=== PATIENT | female | born 2000 | race Caucasian/White ===

== ENCOUNTER 2022-01-27 21:57 | Observation (INO) ==
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
[2022-01-27 22:50] LABS: BASOPHILS # (AUTO) 0.1 X10^3/uL (0.0-0.1); BASOPHILS % (AUTO) 1.7 % (0.2-1.0); EOSINOPHILS # (AUTO) 0.1 x10^3/uL (0.0-0.2); EOSINOPHILS % (AUTO) 1.2 % (0.9-2.9); HEMATOCRIT 34.7 % (36.0-47.0); HEMOGLOBIN 11.2 g/dL (12.0-16.0); LYMPHOCYTES # (AUTO) 1.5 X10^3/uL (1.3-2.9); LYMPHOCYTES % (AUTO) 20.7 % (21.0-51.0); MEAN CORPUSCULAR HEMOGLOBIN 23.2 pg (27.0-34.0); MEAN CORPUSCULAR HGB CONC 32.4 g/dL (33.0-35.0); MEAN CORPUSCULAR VOLUME 71.6 fL (80.0-100.0); MEAN PLATELET VOLUME 8.4 fL (7.4-11.0); MONOCYTES # (AUTO) 0.6 x10^3/uL (0.3-0.8); MONOCYTES % (AUTO) 7.8 % (0.0-13.0); NEUTROPHILS # (AUTO) 4.9 x10^3/uL (2.2-4.8); NEUTROPHILS % (AUTO) 68.6 % (42.0-75.0); RED BLOOD COUNT 4.85 X10^6/uL (3.5-5.4); RED CELL DISTRIBUTION WIDTH 18.1 % (11.6-16.5); WHITE BLOOD COUNT 7.2 X10^3/uL (3.6-10.0)
--- NOTE | 2022-01-27 22:57 | DR.CP ---
HPI Time Seen Time Seen by Provider: 01/27/22 22:40 PCP Primary Care Physician: NFD Complaint Chief Complaint Doctor Comments: CHEST PAIN RADIATING TO BACK FOR 5 WEEKS AFTER . Chief Complaint:: "CP SINCE December" COVID-19 Coronavirus risk:travel/contact w/high risk person: No Has patient experienced Coronavirus symptoms: No Source History Provided: Patient Mode of Arrival Mode of Arrival: EMS Timing Onset of Chief Complaint: 01/19/22 PMH PMH Past Medical History: Yes Past Medical History: Kidney Stones Past Surgical History: Yes Surgical History: Past Surgical History Comment: BACK SURGERY Family History History of Family Medical Conditions: No Social History Alcohol Use: None Do you use any recreational Drugs:: No Lives With: Spouse Lives Where: Home Travel Risk Coronavirus risk:travel/contact w/high risk person: No Has patient experienced Coronavirus symptoms: No Infectious screening In the last 2 months have you had wt loss of >10#?: NO Have you traveled outside the country in the last 6 months?: No Isolation: Standard ROS Review of Systems Constitutional: Other (MID STERNAL CHEST PAIN RADIATING TO BACK.) Eyes: No Symptoms Reported ENTM: No Symptoms Reported Respiratoy: Short of Breath Cardiovascular: Chest Pain Gastrointestinal/Abdominal: No Symptoms Reported Genitourinary: No Symptoms Reported Neurological: No Symptoms Reported Musculoskeletal: No Symptoms Reported, Back and Other (PAIN) Integumentary: No Symptoms Reported Hematologic/Lymphatic: No Symptoms Reported Endocrine: No Symptoms Reported Psychiatric: No Symptoms Reported PE Vitals Vitals: Temperature 99.1 F Pulse Rate [Right Brachial] 89 Pulse Rate 98 Respiratory Rate 26 Blood Pressure [Right Arm] 108/59 Blood Pressure 122/59 O2 Sat by Pulse Oximetry 99 General Limitations: No Limitations General Appearance: In Distress (MODERATE DISTRESS) Head Head Exam: Normal Inspection and Atraumatic Eyes Eye exam: Normal Appearance, PERRL and EOMI Chest Chest Inspection: Normal Inspection and Symmetric Chest Wall Rise Cardiovascular Cardiovascular Exam: Regular Rate and Normal Rhythm Edema: Normal Abdominal Exam Abdominal Exam: Normal Inspection, Normal Bowel Sounds and Soft Extremities Extremities Exam: Normal Inspection and Full ROM Back Back Exam: Normal Inspection and Full ROM Neurologic Neurological Exam: Alert and Oriented X3 Psychiatric Psychiatric Exam: Agitated MDM Differential Diagnosis Differential Diagnosis: Angina, Gastritis, Pneumonia and Pulmonary Embolus COURSE Treatment Treatment: PATIENT REMAINED RELATIVELY STABLE DURING ER EVALUATION. HAD D-DIMER DONE THAT WAS 9.30 AND SUBSEQUENTLY GO A CTA OF CHEST ALEXX TSHOWED HEAVY CLOT BURDEN IS SEEN INVOLVING THE LINGULAR LOBE,LEFT LOWER LOBE, RLL AND RML PULMONARY ARTRIES. EKG WAS SINUS RHYTHM AND HAD ELEVATED LFT'S. THE PATIENT WAS MADE AWARE OF THE PE'SAND INITIALLY WAS TOLD OF NEEED TO GO INTO HOSPITAL FOR TREATMENT. I CONTACTED DR JORDAN THE ON-CALL PHYSICIAN AND HE FELT THAT THE PATIENT COULD BE GIVEN LOVENOX SQ AND ELEQUIS 10MG ORALLY BID FOR 7 DAYS AND FOLLOWUP WITH HIM IN 5-7 DAYD SINCE THE PATIENT DID NOT HAVE AN ASSIGNED PHYSICIAN. THE PATIENT WAS TOLD OF THIS PLAN BUT DID NOT FEEL COMFOTABLE GOING HOME SO DR JORDAN WAS CALLED BACK AND HE STATED THAT THE PATIENT COULD BE ADMITTED BUT STILL GIVE THE LOVENOX AND START THE ELEQUIS 10MG POBID. HE WOULD COME IN TO SEE THE PATIENT TOMORROW. THE PATIENT WAS TOLD OF THIS CHANGE AND WS AGREABLE TO THE OBSERVATION. THE UTILIZATION REVIEW WAS CALLED AND STATED THE PATIENT COULD BE PUT IN OBSERVATION. [facility] Labs Reviewed Laboratory Results Reviewed?: Yes Result Diagrams: 01/27/22 22:40 01/27/22 22:40 Laboratory: WBC 7.2 X10^3/uL (3.6-10.0) 01/27/22 22:40 RBC 4.85 X10^6/uL (3.5-5.4) 01/27/22 22:40 Hgb 11.2 g/dL (12.0-16.0) L 01/27/22 22:40 Hct 34.7 % (36.0-47.0) L 01/27/22 22:40 MCV 71.6 fL (80.0-100.0) L 01/27/22 22:40 MCH 23.2 pg (27.0-34.0) L 01/27/22 22:40 MCHC 32.4 g/dL (33.0-35.0) L 01/27/22 22:40 RDW 18.1 % (11.6-16.5) H 01/27/22 22:40 Plt Count 245 X10^3/uL (150.0-450.0) 01/27/22 22:40 Plt Count Comment Adequate (ADEQUATE) 01/27/22 22:40 MPV 8.4 fL (7.4-11.0) 01/27/22 22:40 Neut % (Auto) 68.6 % (42.0-75.0) 01/27/22 22:40 Lymph % (Auto) 20.7 % (21.0-51.0) L 01/27/22 22:40 [place] % (Auto) 7.8 % (0.0-13.0) 01/27/22 22:40 Eos % (Auto) 1.2 % (0.9-2.9) 01/27/22 22:40 Baso % (Auto) 1.7 % (0.2-1.0) H 01/27/22 22:40 Neut # (Auto) 4.9 x10^3/uL (2.2-4.8) H 01/27/22 22:40 Lymph # (Auto) 1.5 X10^3/uL (1.3-2.9) 01/27/22 22:40 [place] # (Auto) 0.6 x10^3/uL (0.3-0.8) 01/27/22 22:40 Eos # (Auto) 0.1 x10^3/uL (0.0-0.2) 01/27/22 22:40 Baso # (Auto) 0.1 X10^3/uL (0.0-0.1) 01/27/22 22:40 Absolute Nucleated RBC 0.0 /100WBC 01/27/22 22:40 Plt Morphology Comment Normal (NORMAL) 01/27/22 22:40 RBC Morphology Abnormal (NORMAL) A 01/27/22 22:40 Microcytosis Slight A 01/27/22 22:40 PT 14.4 SECONDS (11.8-14.3) 01/27/22 22:40 INR Target Range - 01/27/22 22:40 INR 1.16 (0.8-1.3) 01/27/22 22:40 APTT 25.8 SECONDS (22.9-36.5) 01/27/22 22:40 PTT Comment - 01/27/22 22:40 D-Dimer 9.30 ug/ml (0.0-0.57) H 01/27/22 22:40 Sodium 140 mmol/L (136-145) 01/27/22 22:40 Corrected Sodium 140 mmol/L (136-145) 01/27/22 22:40 Potassium 3.3 mmol/L (3.5-5.1) L 01/27/22 22:40 Chloride 105 mmol/L (98-107) 01/27/22 22:40 Carbon Dioxide 22.6 mmol/L (21-32) 01/27/22 22:40 BUN 12 mg/dL (7-18) 01/27/22 22:40 Creatinine 0.65 mg/dL (0.55-1.02) 01/27/22 22:40 Est GFR (MDRD) Af Amer > 60 (>60) 01/27/22 22:40 Est GFR (MDRD) Non-Af > 60 (>60) 01/27/22 22:40 Glucose 114 mg/dL (65-99) H 01/27/22 22:40 Calcium 9.1 mg/dL (8.5-10.1) 01/27/22 22:40 Corrected Calcium TNP 01/27/22 22:40 Total Bilirubin 0.40 mg/dL (0.2-1.0) 01/27/22 22:40 AST 232 Units/L (15-37) H 01/27/22 22:40 ALT 288 Units/L (12-78) H 01/27/22 22:40 Alkaline Phosphatase 233 Units/L (46-116) H 01/27/22 22:40 Creatine Kinase 53 Units/L (26-192) 01/27/22 22:40 Troponin I High Sens 13.8 ng/L (4.0-60.0) 01/27/22 22:40 Total Protein 7.6 g/dL (6.4-8.2) 01/27/22 22:40 Albumin 3.7 g/dL (3.4-5.0) 01/27/22 22:40 Globulin 3.9 g/dL (2.5-4.5) 01/27/22 22:40 Albumin/Globulin Ratio 0.9 Ratio (1.1-2.1) L 01/27/22 22:40 Opioid Opioid Risk Tool Age (Ehsan box if 16-45): Yes Total: 1 Total Score Risk Category: Low Risk Copyright: Damian ALFARO predicting aberrant behaviors Discharge Plan Diagnosis Discharge Problem: Pulmonary embolism, Hypokalemia, Chest discomfort Discharge Plan Patient Disposition: ADMITTED INPATIENT Condition: Stable Prescriptions: No Action bupropion HCl [Wellbutrin] 100 mg Tablet 100 mg PO DAILY Health Concerns: Post Hospitalization: new medications and changes needed to prevent readmission or further decline. Pt educated and given instructions on all concerns. Plan of Treatment: Continue with present treatment and follow up plan. Pt is to keep follow up appointment as instructed and take medications as ordered. Orders to Discharge Patient Discharge Orders: Transfer (Routine); Ordered 01/28/22 Ordered By: Zhen Savage Follow ups/Referrals Follow ups/Referrals: NFD,None [Primary Care Provider] - 3 days Instructions Stand Alone Forms: Precautions for COVID19, [facility], Patient Portal, Social Distancing
[2022-01-27 23:01] LABS: ALANINE AMINOTRANSFERASE 288 Units/L (12-78); ALBUMIN 3.7 g/dL (3.4-5.0); ALKALINE PHOSPHATASE 233 Units/L (46-116); ASPARTATE AMINO TRANSFERASE 232 Units/L (15-37); BLOOD UREA NITROGEN 12 mg/dL (7-18); CALCIUM 9.1 mg/dL (8.5-10.1); CARBON DIOXIDE 22.6 mmol/L (21-32); CHLORIDE 105 mmol/L (98-107); COR NA(FOR HYPERGLY) 140 mmol/L (136-145); CREATINE KINASE 53 Units/L (26-192); CREATININE 0.65 mg/dL (0.55-1.02); MICROCYTOSIS SLIGHT; PLATELET MORPHOLOGY COMMENT NORMAL (NORMAL); SODIUM 140 mmol/L (136-145); TOTAL PROTEIN 7.6 g/dL (6.4-8.2); eGFR NON BLACK RACES > 60 (>60)
--- NOTE | 2022-01-28 00:29 | CT ---
STUDY: CTA CHEST WITH CONTRASTCOMPARISON: NoneTECHNIQUE: axial images were acquired of the chest with IV contrast for a CT angiogram. Coronal and sagittal images were provided. All images were reviewed in a variety of windows and levels. 3D 8 mm thick MIPS images were provided.RADIATION REDUCTION TECHNIQUE: Automated exposure control, Adjustment of the mA and/or kV according to patient size, or iterative reconstruction techniques were used. 8 mm thick axial MIPS images were provided.HISTORY: CHEST PAIN AND ELEVATED D-DIMERCHEST:THYROID GLAND: The thyroid gland is unremarkable.HEART AND VESSELS: The heart size is within normal limits. There is no evidence of a pericardial effusion. The thoracic aorta is normal in size without evidence of aneurysm or dissection. The main pulmonary artery size is within normal limits. Heavy clot burden is seen involving the lingular lobe, left lower lobe, right lower lobe, and right middle lobe pulmonary arteries.LYMPHNODES: There is no evidence of axillary, mediastinal, or hilar lymphadenopathy,AIRWAY: The trachea and mainstem bronchi are patent. No intraluminal lesions are seen.LUNGS: The lungs are clear bilaterally.There is no evidence of consolidation, pleural effusion, or pneumothorax.ESOPHAGUS: The esophagus is grossly unremarkable.BONES: The visualized bones demonstrate degenerative changes. There are no concerning lytic or blastic lesions identified. Nathan rods are noted for treatment of scoliosis.UPPER ABDOMINAL STRUCTURES: The visualized portions of the upper abdominal structures are unremarkable.IMPRESSION:- EXAM IS POSITIVE FOR PULMONARY EMBOLISM.- THE LUNGS ARE CLEAR AND THE HEART SIZE IS NORMAL.- THE PATIENT HAS NATHAN RODS IN PLACE FOR TREATMENT OF SCOLIOSIS.Electronically signed by: Minh Marc (Jan 28, 2022 00:27:43)
[2022-01-28] MEDS ORDERED: LOVENOX INJ 80 MG SYR SC ONE ×2 (01:27→01:33)
[2022-01-28] MEDS ORDERED: ELIQUIS ONE (01:34)
[2022-01-28] MEDS: ELIQUIS PO SCH ×2 (01:52→09:02)
[2022-01-28] MEDS ORDERED: ZOFRAN INJ 4 MG VIAL IVP ONE (02:08)
[2022-01-28] MEDS ORDERED: MORPHINE SULFATE INJ 2 MG INJ IVP ONE (02:08)
[2022-01-28] MEDS ORDERED: ZOFRAN INJ 4 MG VIAL ONE (02:09)
[2022-01-28] MEDS ORDERED: MORPHINE SULFATE INJ 2 MG INJ ONE (02:09)
[2022-01-28] MEDS ORDERED: ZOFRAN INJ 4 MG VIAL IVP PRN (02:41)
[2022-01-28] MEDS ORDERED: MORPHINE SULFATE INJ 2 MG INJ IVP PRN (02:41)
[2022-01-28 04:13] VITALS: BMI 29.7
[2022-01-28 05:26] LABS: BASOPHILS # (AUTO) 0.1 X10^3/uL (0.0-0.1); BASOPHILS % (AUTO) 1.2 % (0.2-1.0); EOSINOPHILS % (AUTO) 0.5 % (0.9-2.9); HEMATOCRIT 34.6 % (36.0-47.0); HEMOGLOBIN 11.1 g/dL (12.0-16.0); LYMPHOCYTES # (AUTO) 1.5 X10^3/uL (1.3-2.9); LYMPHOCYTES % (AUTO) 23.7 % (21.0-51.0); MEAN CORPUSCULAR HEMOGLOBIN 23.1 pg (27.0-34.0); MEAN CORPUSCULAR HGB CONC 32.2 g/dL (33.0-35.0); MEAN CORPUSCULAR VOLUME 71.7 fL (80.0-100.0); MEAN PLATELET VOLUME 9.3 fL (7.4-11.0); MONOCYTES # (AUTO) 0.6 x10^3/uL (0.3-0.8); MONOCYTES % (AUTO) 9.8 % (0.0-13.0); NEUTROPHILS # (AUTO) 4.2 x10^3/uL (2.2-4.8); NEUTROPHILS % (AUTO) 64.8 % (42.0-75.0); RED BLOOD COUNT 4.82 X10^6/uL (3.5-5.4); RED CELL DISTRIBUTION WIDTH 17.8 % (11.6-16.5); WHITE BLOOD COUNT 6.4 X10^3/uL (3.6-10.0)
[2022-01-28 05:38] LABS: ALANINE AMINOTRANSFERASE 528 Units/L (12-78); ALBUMIN 3.7 g/dL (3.4-5.0); ALKALINE PHOSPHATASE 286 Units/L (46-116); ASPARTATE AMINO TRANSFERASE 564 Units/L (15-37); BLOOD UREA NITROGEN 9 mg/dL (7-18); CALCIUM 8.9 mg/dL (8.5-10.1); CARBON DIOXIDE 23.5 mmol/L (21-32); CHLORIDE 106 mmol/L (98-107); CREATININE 0.57 mg/dL (0.55-1.02); SODIUM 140 mmol/L (136-145); TOTAL PROTEIN 7.5 g/dL (6.4-8.2); eGFR NON BLACK RACES > 60 (>60)
[2022-01-28 06:16] LABS: PLATELET MORPHOLOGY COMMENT NORMAL (NORMAL)
[2022-01-28 06:17] LABS: ANISOCYTOSIS SLIGHT; HYPOCHROMASIA 1+; MICROCYTOSIS SLIGHT; OVALOCYTES PRESENT
[2022-01-28] MEDS ORDERED: K-RIDER 10 MEQ/NS 100 ML 10 MEQ/100 ML BAG IV PRN (06:52)
[2022-01-28] MEDS ORDERED: MICRO K EXTEN CAP 10 MEQ PO PRN (06:52)
[2022-01-28] MEDS ORDERED: KLOR-CON PO PRN (06:52)
[2022-01-28] MEDS ORDERED: POTASSIUM CHLORIDE LIQ 20 MEQ UDC PO PRN (06:52)
[2022-01-28] MEDS ORDERED: K-DUR TAB 20 MEQ PO PRN (06:52)
[2022-01-28] MEDS: MAGNESIUM SULFATE 1 GRAM/100 mL PREMIX 1 G/100 ML BAG IV PRN ×2 (11:39→12:45)
[2022-01-28 14:19] VITALS: BP 101/74
[2022-02-03] MEDS ORDERED: ELIQUIS PO SCH (21:00)
== END 2022-01-28 14:15 | disposition home or self-care (01) ==
LOC: ER 21:57 → ICU 21:57
PROVIDERS: ADMIT Obstetrics & Gynecology Obstetrics; ATTEND Obstetrics & Gynecology Obstetrics
DX: R94.31 Abnormal electrocardiogram [ECG] [EKG]; R94.5 Abnormal results of liver function studies; R07.89 Other chest pain; E87.6 Hypokalemia; R79.1 Abnormal coagulation profile; I26.99 Other pulmonary embolism without acute cor pulmonale